=== PATIENT | female | born 1965 | race Asian ===

== ENCOUNTER 2019-09-27 07:18 | Day surgery (SDC) | payer OTHER ==
[~2019-09-27] VITALS: Ht 162.6 cm; Wt 53.1 kg
[2019-09-27] MEDS ORDERED: fentaNYL 0.05 MG/ML VIAL ONE (10:18)
[2019-09-27] MEDS ORDERED: LIDOCAINE 2% 100 MG/5 ML UJET TP ONE (10:18)
[2019-09-27] MEDS ORDERED: MIDAZOLAM 2 MG/2 ML VIAL ONE (10:53)
[2019-09-27] MEDS ORDERED: MIDAZOLAM 2 MG/2 ML VIAL IVP ONE (10:54)
[2019-09-27] MEDS ORDERED: fentaNYL 0.05 MG/ML VIAL IVP ONE (10:56)
== END 2019-09-27 12:10 | disposition home or self-care (01) ==
LOC: MDS 07:18 → MMU 07:19 → MDS 12:10
PROVIDERS: ATTEND Internal Medicine Gastroenterology
DX: Z12.11 Encounter for screening for malignant neoplasm of colon (principal); K21.9 Gastro-esophageal reflux disease without esophagitis; Z80.0 Family history of malignant neoplasm of digestive organs; Z79.899 Other long term (current) drug therapy; Z86.19 Personal history of other infectious and parasitic diseases
CPT/HCPCS: 45378; J2250; J3010

== ENCOUNTER 2021-06-18 09:12 | Day surgery (SDC) | payer OTHER ==
[~2021-06-18] VITALS: Ht 167.6 cm; Wt 54.4 kg
[2021-06-18] MEDS ORDERED: MIDAZOLAM 5 MG/5 ML VIAL ONE (12:24)
[2021-06-18] MEDS ORDERED: fentaNYL citrate 0.05 MG/ML VIAL ONE (12:24)
[2021-06-18] MEDS ORDERED: MIDAZOLAM 2 MG/2 ML VIAL IVP ONE (12:40)
== END 2021-06-18 13:26 | disposition home or self-care (01) ==
LOC: MDS 09:12 → MMU 09:13 → MDS 13:26
PROVIDERS: ATTEND Internal Medicine Gastroenterology
DX: R10.13 Epigastric pain (principal); B18.1 Chronic viral hepatitis B without delta-agent; Z79.899 Other long term (current) drug therapy
CPT/HCPCS: 43235; J2250; J3010

== ENCOUNTER 2021-12-01 06:15 | Emergency (ER) | payer OTHER ==
[~2021-12-01] VITALS: Ht 162.6 cm; Wt 55.3 kg
[2021-12-01 06:36] VITALS: BP 166/94
--- NOTE | 2021-12-01 07:28 | NUR ---
pt being assessed in triage room by md diaz.
--- NOTE | 2021-12-01 07:53 | NUR ---
56 y/o female bib self from home, c/o rapid heart rate since october 2021. pt states she has a machine at home and has been reading between 120-130 with some hypertension. denies nausea, vomiting, diarrhea. denies hematuria, dysuria, pelvic pain, urinary frequency and retention at this time. skin is pink/warm/dry. a&o x4 with even and steady gait. lungs clear bl, heart rate even and tachy at 99. pt denies any fever, cp, sob, or cough at this time. denies anyone sick in [facility] with same symptoms at this time. pt states pain is 0/10 at this time. patient. Ermd made aware of pt. pmh: denies allergy: denies med: denies
[2021-12-01 07:56] LABS: BASOPHILS % (AUTO) 0.8 % (0.0-2.0); EOSINOPHILS % (AUTO) 0.6 % (0.0-4.0); HEMATOCRIT 38.8 % (36-48); LYMPHOCYTES # (AUTO) 1.9 K/uL (2.5-16.5); MEAN CORPUSCULAR HEMOGLOBIN 31 pg (27-31); MEAN CORPUSCULAR HGB CONC 34 g/dL (33-37); MEAN CORPUSCULAR VOLUME 91.1 fL (80-94); MONOCYTES # (AUTO) 0.3 K/uL (0.8-1.0); MONOCYTES % (AUTO) 5.2 % (1.7-9.3); NEUTROPHILS # (AUTO) 2.9 K/uL (1.8-7.7); NEUTROPHILS % (AUTO) 56.4 % (42.2-75.2); PLATELET COUNT (AUTO) 316 K/uL (140-450); RED BLOOD CELL COUNT(AUTO) 4.26 MIL/uL (4.20-5.40); RED CELL DISTRIBUTION WIDTH 12.9 % (11.6-13.7); WHITE BLOOD COUNT (AUTO) 5.2 K/uL (4.8-10.8)
[2021-12-01 13:10] LABS: ANION GAP 15.9 (8-16); CARBON DIOXIDE 26.7 mmol/L (21-32); CREATININE 0.6 mg/dL (0.6-1.3); POTASSIUM 4.6 mmol/L (3.5-5.1)
[2021-12-01 13:30] LABS: MAGNESIUM 2.3 mg/dL (1.8-2.4); THYROID STIMULATING HORMONE 0.68 uIU/mL (0.34-3.74); TOTAL BILIRUBIN 0.5 mg/dL (0.0-1.0)
--- NOTE | 2021-12-01 14:15 | NUR ---
called name for dx paperwork, no response in lobby or outside. left without paperwork
[2021-12-01 14:17] VITALS: BP 166/94
== END 2021-12-01 14:15 | disposition home or self-care (01) ==
LOC: MED 06:15
DX: R00.2 Palpitations (principal); R03.0 Elevated blood-pressure reading, without diagnosis of hypertension
CPT/HCPCS: 36415; 71045; 80053; 83735; 84443; 84484; 85025; 99284

== ENCOUNTER 2022-05-31 14:17 | Emergency (ER) | payer OTHER ==
[~2022-05-31] VITALS: Ht 162.6 cm; Wt 56.7 kg
[2022-05-31 14:49] VITALS: BP 130/103
--- NOTE | 2022-05-31 14:54 | NUR ---
PT W/C ASSISTED TO BED 1.
[2022-05-31] MEDS ORDERED: ONDANSETRON 4 MG/2 ML VIAL IVP ONE (15:15)
[2022-05-31] MEDS ORDERED: MECLIZINE 25 MG TAB PO ONE (15:15)
[2022-05-31] MEDS ORDERED: NACL 0.9% 1,000 ML IV ONE (15:15)
--- NOTE | 2022-05-31 15:15 | NUR ---
56 Y.O. F C/O DIZZINESS, N/V X YESTERDAY. PT ATE [employer] YESTERDAY AND SHE THINKLS THATS MAKING HER SICK. PT WENT TO PCP WHICH SENT HER HERE DUE TO BEING BUSY, DR GAVE NOTE THAT PRIOR PT GOT DIZZY WHEN SHE HAS AN EAR INFECTION. ABD PAIN 05/15. DENIES ANY BLOOD IN HER VOMIT, DIAHRREA, CHEST PAIN, SOB, AND RINGING IN HER EARS. A&OX4, SKIN INTACT, WHEELCHAIR ASSISTED AT THIS TIME, AND VITALS WNL. NKA PMH: HEP B
[2022-05-31 15:30] LABS: BASOPHILS % (AUTO) 0.2 % (0.0-2.0); HEMATOCRIT 40.3 % (36-48); HEMOGLOBIN 13.1 g/dL (12.0-16.0); LYMPHOCYTES # (AUTO) 1.6 K/uL (2.5-16.5); LYMPHOCYTES % (AUTO) 16.2 % (20.5-51.1); MEAN CORPUSCULAR HEMOGLOBIN 30 pg (27-31); MEAN CORPUSCULAR HGB CONC 32 g/dL (33-37); MEAN CORPUSCULAR VOLUME 91.8 fL (80-94); MONOCYTES # (AUTO) 0.3 K/uL (0.8-1.0); MONOCYTES % (AUTO) 3.5 % (1.7-9.3); NEUTROPHILS % (AUTO) 80.1 % (42.2-75.2); PLATELET COUNT (AUTO) 263 K/uL (140-450); RED BLOOD CELL COUNT(AUTO) 4.39 MIL/uL (4.20-5.40); RED CELL DISTRIBUTION WIDTH 13.4 % (11.6-13.7)
[2022-05-31 15:48] LABS: ALBUMIN 3.8 g/dL (3.4-5.0); ANION GAP 13.8 (8-16); CARBON DIOXIDE 25.8 mmol/L (21-32); CREATININE 0.7 mg/dL (0.6-1.3); MAGNESIUM 1.9 mg/dL (1.8-2.4); POTASSIUM 3.6 mmol/L (3.5-5.1); TOTAL BILIRUBIN 0.4 mg/dL (0.0-1.0)
[2022-05-31] MEDS ORDERED: DIAZEPAM PFS 10 MG/2 ML SYR IVP ONE (17:15)
--- NOTE | 2022-05-31 17:30 | NUR ---
PT RESTING IN BED. ALL PT NEEDS MEET AT THIS TIME.
--- NOTE | 2022-05-31 18:11 | NUR ---
PT MOVED TO ER BED 3
--- NOTE | 2022-05-31 19:17 | NUR ---
recieved transfer of care report from joe manrique
[2022-05-31] MEDS ORDERED: diphenhydrAMINE 50 MG/ML VIAL IVP ONE (20:25)
[2022-05-31] MEDS ORDERED: PROCHLORPERAZINE 10 MG/2 ML VIAL IVP ONE (20:25)
[2022-05-31] MEDS ORDERED: MECL-303 PO (21:56)
[2022-05-31] MEDS ORDERED: ONDA-188 SL (21:56)
[2022-05-31 22:19] VITALS: BP 123/67
--- NOTE | 2022-05-31 22:21 | NUR ---
Patient discharged with v/s stable. Written and verbal after care instructions given and explained. Patient alert, oriented and verbalized understanding of instructions. Wheel Chair Assisted with to car. All questions addressed prior to discharge. ID band removed. Patient advised to follow up with PMD. Rx of ZOFRAN AND ANTIVERT given. Patient educated on indication of medication including possible reaction and side effects. Opportunity to ask questions provided and answered. VSS, A/OX4, AMBULATORY, UNLABORED BREATHING, AND CALM DEMEANOR.
== END 2022-05-31 22:20 | disposition home or self-care (01) ==
LOC: MED 14:17
DX: R42 Dizziness and giddiness (principal)
CPT/HCPCS: 36415; 70450; 80053; 83735; 85025; 93005; 96361; 96374; 96375; 99285; J0780; J1200; J2405; J3360; J8597; J7030